=== PATIENT | female | born 1990 | race Caucasian/White ===

== ENCOUNTER 2017-10-25 07:54 | Day surgery (SDC) | payer OTHER ==
[~2017-10-25] VITALS: Ht 160 cm; Wt 51.5 kg
[2017-10-25 09:01] VITALS: Ht 160 cm; Wt 51.5 kg
[2017-10-25] MEDS ORDERED: lamotrigine PO (09:15)
[2017-10-25] MEDS ORDERED: pepcid PO (09:15)
[2017-10-25] MEDS ORDERED: prozac PO (09:15)
[2017-10-25] MEDS ORDERED: birth control pill PO (09:15)
--- NOTE | 2017-10-25 09:59 | OPPN ---
Date/Time of Note Date/Time of Note DATE: 10/25/17 TIME: 09:58 Operative Report Preoperative Diagnosis Abdominal pain Gastroesophageal reflux disease Postoperative Diagnosis Hiatal hernia and gastroesophageal reflux disease Gastritis with erosions Operation/Procedure Performed Esophagogastroduodenoscopy and biopsy Surgeon see signature line orthopedic assistant None Anesthesia: moderate sedation Estimated blood loss: none Transfusion Required none Specimen Gastric mucosal biopsy Grafts/Implants none Complications none SARA MOODY MD Oct 25, 2017 09:59
[2017-10-25] MEDS ORDERED: MIDAZOLAM 1 MG/ML 2 ML INJ ONE ×2 (10:28)
[2017-10-25] MEDS ORDERED: FENTAnyl 50 MCG/ML VIAL ONE (10:28)
--- NOTE | 2017-10-25 13:34 | GILP ---
DATE OF PROCEDURE: NAME OF PROCEDURE: Esophagogastroduodenoscopy and biopsy. SURGEON: Sara Chiang MD PREOPERATIVE DIAGNOSES: 1. Abdominal pain. 2. Gastroesophageal reflux disease. POSTOPERATIVE DIAGNOSES: 1. Hiatal hernia. 2. Gastroesophageal reflux disease. 3. Gastritis with erosions. 4. Gastric mucosal biopsies were taken for Helicobacter pylori test. INDICATION FOR THE PROCEDURE: Ms. Nikia Kapoor is a 26-year-old female patient who had upper abdomi nal pain and chronic heartburn, not responding to therapy. The patient was scheduled for endoscopic examination for further evaluation. The procedure and possible complications were well explained to the patient. The patient understood and consented to the procedure. DESCRIPTION OF PROCEDURE: Under the influence of fentanyl and Versed, the gastroscope was carefully introduced into the esophagus and under direct vision it was advanced to the stomach and through th e pylorus into the duodenal bulb and descending duodenum. FINDINGS: ESOPHAGUS: The patient had hiatal hernia and gastroesophageal reflux disease. STOMACH: She had gastritis with erosions. Gastric mucosal biopsies were taken for H. pylori test. Duodenum was normal. She tolerated the procedure very well and there was no complication from the procedure. At the end of the procedure, she was awake with stable vital signs and she was discharged home to the care of h family. IMPRESSION: Please see postoperative diagnosis. PLAN: 1. Omeprazole 40 mg p.o. q.a.m. 2. Await H. pylori test report. Dictated By: SARA PERES/KEYSHA Conf#: [id number] DID#: [id number]
--- NOTE | 2017-10-27 06:37 | CONS ---
DATE OF ADMISSION: 10/25/2017 DATE OF CONSULTATION: PATIENT NAME: LITA SANTIAGO PREOPERATIVE GASTROENTEROLOGY I thank you very much for this kind referral. HISTORY OF PRESENT ILLNESS: Ms. Lita Santiago is a 26-year-old female patient who has been referred to me for further evaluation of upper abdominal pain associated with bloating. She also has gastroe sophageal reflux disease with burping. No past history of peptic ulcer disease. Her appetite has b een somewhat poor and she has history of weight loss. Not taking nonsteroidal anti-inflammatory age nts. No history of gallstones or liver disease. Patient complains of change in the bowel habit wit h worsening constipation and lower abdominal pain. She has been taking Colace without relief. No p ast history of inflammatory bowel disease or colon neoplasm. Not a hypertensive or diabetic. No he art disease, lung problem or kidney disease. She has got a history of depression and seizure disord er. She is status post surgery during infancy for some obstruction in the gastrointestinal tract. Nonsmoker. No alcohol abuse. No family history of gastrointestinal tract neoplasm. ALLERGIES: NO DRUG ALLERGIES. MEDICATIONS: 1. Pepcid. 2. Prozac. 3. Lamotrigine. 4. control pill. PHYSICAL EXAMINATION: GENERAL: She is 5 feet 3 inches tall, weighs 114 pounds, normal heart sounds. LUNGS: Clear. ABDOMEN: Soft. No masses. Normal bowel sounds. NEUROLOGIC: Normal exam. IMPRESSION: 1. Upper abdominal pain associated with bloating. 2. Chronic gastroesophageal reflux disease with burping. 3. Weight loss. 4. Lower abdominal pain and worsening constipation. 5. Depression. 6. Seizure disorder. 7. Status post abdominal surgery during infancy for possible bowel obstruction. PLAN: 1. Pepcid 40 mg p.o. daily. 2. MiraLax 17 grams dissolved in a glass of water p.o. daily. 3. Advised high fiber diet. 4. Endoscopic examination and colonoscopy for further evaluation. The procedures and possible complications were well explained to the patient. She understands and c onsents to the procedures. I thank you once again. With warmest personal regards, Dictated By: SARA PERES/KEYSHA Conf#: [id number] DID#: [id number]
== END 2017-10-25 11:17 | disposition home or self-care (01) ==
LOC: GIL 07:54
PROVIDERS: ATTEND Internal Medicine Gastroenterology
DX: K21.9 Gastro-esophageal reflux disease without esophagitis (principal); K44.9 Diaphragmatic hernia without obstruction or gangrene; K29.70 Gastritis, unspecified, without bleeding
CPT/HCPCS: 43239; 84703; 87081; J2250; J3010; Z7610